=== PATIENT | female | born 1995 | race Caucasian/White ===

== ENCOUNTER → 2017-06-02 | Outpatient (CLI) | payer BC ==
[2017-06-02 10:56] LABS: Follicle Stimulating Hormone 4.5 mIU/mL; Prolactin 8.9 ng/mL (3.0-18.6)
[2017-06-04 15:51] LABS: DHEA Sulfate 150.8 ug/dL (26.0-350.0)
== END | disposition home or self-care (01) ==
LOC: LABWHC1 08:51
PROVIDERS: ATTEND Nurse Practitioner Women's Health
DX: N91.2 Amenorrhea, unspecified (principal)
CPT/HCPCS: 36415; 80061; 82627; 82947; 83001; 84144; 84146; 84443